=== PATIENT | male | born 1985 | race Caucasian/White ===

== ENCOUNTER 2025-02-15 22:03 | Emergency (ER) | payer BC, MEDICAID, SELFPAY ==
--- NOTE | 2025-02-15 22:09 | ECG_ITS ---
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 Measurements Intervals [place] Rate: 113 P: 12 NC: 162 QRS: -13 QRSD: 74 T: 61 QT: 305 QTc: 418 Interpretive Statements SINUS TACHYCARDIA TECHNICALLY POOR TRACING ABNORMAL RHYTHM ECG No previous ECG available for comparison Electronically Signed On 02-16-2025 20:14:14 BAND SINGER by Jaxon Vences M.D. [id number] [id number]
--- NOTE | 2025-02-15 22:09 | XRR_ITS ---
PROCEDURE INFORMATION: Exam: XR Chest Exam date and time: 02/15/2025 10:13 PM Age: 39 years old Clinical indication: Pain; Chest pressure; Additional info: Chest pain TECHNIQUE: Imaging protocol: Radiologic exam of the chest. Views: 1 view. COMPARISON: No relevant prior studies available. FINDINGS: Lungs: Unremarkable. No consolidation. Pleural spaces: Unremarkable. No pleural effusion. No pneumothorax. Heart/Mediastinum: Unremarkable. No cardiomegaly. Bones/joints: Unremarkable. Gastrointestinal tract: Distended stomach with ingested material. XR/XR chest 1V portable [id number] IMPRESSION: As above.
[2025-02-15 22:14] VITALS: BP 144/102; PULSE 106; RESP 18; TEMP 36.7; O2SAT 98; BMI 29.2
--- NOTE | 2025-02-15 22:23 | W.ED.CHESTPA ---
HPI - Chest Pain General: Chief Complaint: Chest Pain Stated Complaint: Chest Pain Time Seen by Provider: 02/15/25 22:13 History of Present Illness: 39yo M w/cc of chest pain. Patient does not have any significant medical history and does not take any medications although recently he has stopped taking medications for weight loss called phentermine. Patient states that today, he was standing while his son was changing his tire. He states that he bent over and started experiencing pressure-like sensation in his left chest. He states this persisted for a little while but it was not exertional, did not radiate, he denies pain with deep breathing. Patient has not had a fever, denies cough, hemoptysis, shortness of breath, syncope, lower extremity swelling. No abdominal pain, vomiting or diaphoresis. Patient has felt a little nauseated but that had passed. Patient states the chest pain has now resolved. Patient states he is a former smoker but no longer smokes and does not use marijuana. Related Data Allergies Allergy/AdvReac Type Severity Reaction Status Date / Time No Known Allergies Allergy Verified 02/15/25 22:18 Physical Exam Narrative: EXAM NARRATIVE: Vital signs were reviewed. Patient is alert and oriented. Patient is breathing comfortably, no increased WOB or accessory muscle use. SpO2 is above 95% on RA. Patient has clear lungs b/l, no rhonchi, wheezing or crackles. No hypotension. +Mild tachycardia. Abdomen is soft, nondistended and nontender. Patient is moving all extremities, no deformity or gross injury. No lower extremity edema or asymmetry. Course Vital Signs: Vital signs: Vital Signs Temperature 98.0 F 02/15/25 22:14 Pulse Rate 86 02/16/25 00:50 Respiratory Rate 16 02/16/25 00:50 Blood Pressure 110/75 02/16/25 00:50 Pulse Oximetry 97 02/16/25 00:50 Oxygen Delivery Me thod Room Air 02/15/25 22:14 MDM - Chest Pain Medical Decision Making 39-year-old male without significant medical history presents with a chief complaint of chest pain. Differential diagnosis includes, but is not limited to, ACS, myocarditis, pericarditis, pneumonia, viral upper respiratory infection, PE, GERD, other. On initial exam, patient is hemodynamically stable nontoxic appearing. EKG was personally reviewed and interpreted and shows no STEMI. He was evaluated with CBC, CMP, troponin, D-dimer, EKG and chest x-ray. EKG does not show STEMI though baseline is quite poor on the first EKG. Patient has a normal white blood cell count and is not anemic. He does not have any actionable electrolyte abnormalities. He has a normal baseline troponin with a negative delta, D-dimer is within normal limits. Chest x-ray does not show acute pathology. He has a heart score of 0-1. Patient's presentation is consistent with noncardiac chest pain in a case at this time he is chest pain-free. He is comfortable going home and following up with his regular doctor. Patient was counseled on supportive care at home, given return precautions and discharged in stable condition with recommendation for outpatient follow-up with primary care nurse or doctor. Lab Data 02/15/25 22:40 02/15/25 22:40 Radiology Impressions Chest X-Ray 02/15/25 22:09 IMPRESSION: As above. Laboratory Results WBC 7.47 10^3/uL (3.29-11.43) 02/15/25 22:40 RBC 5.36 10^6/uL (3.85-5.65) 02/15/25 22:40 Hgb 16.60 g/dL (11.27-16.99) 02/15/25 22:40 Hct 47.1 % (37-53) 02/15/25 22:40 MCV 87.9 fl (82-101) 02/15/25 22:40 MCH 31.0 pg (27-33) 02/15/25 22:40 MCHC 35.2 g/dL (30-55) 02/15/25 22:40 RDW 12.3 % (12.1-15.1) 02/15/25 22:40 Plt Count 315 10^3/cmm (157-399) 02/15/25 22:40 MPV 9.1 fL (7.4-10.4) 02/15/25 22:40 Neut % (Auto) 53.9 % 02/15/25 22:40 Lymph % (Auto) 33.6 % 02/15/25 22:40 [place] % (Auto) 9.8 % 02/15/25 22:40 Eos % (Auto) 1.5 % 02/15/25 22:40 Baso % (Auto) 0.9 % 02/15/25 22:40 Neut # (Auto) 4.03 10^3/uL (1.8-7.7) 02/15/25 22:40 Lymph # (Auto) 2.5 10^3/uL (0.8-4.8) 02/15/25 22:40 [place] # (Auto) 0.7 10^3/uL (0.2-0.9) 02/15/25 22:40 Eos # (Auto) 0.1 10^3/uL (0.0-0.8) 02/15/25 22:40 Baso # (Auto) 0.1 10^3/uL (0.0-0.1) 02/15/25 22:40 Nucleated RBC % (auto) 0 % 02/15/25 22:40 Nucleated RBCs # 0.0 /100WBC 02/15/25 22:40 D-Dimer <= 0.27 ug/mLFEU (0-0.59) 02/15/25 22:40 Sodium 138 mmol/L (136-145) 02/15/25 22:40 Potassium 3.9 mmol/L (3.5-5.1) 02/15/25 22:40 Chloride 101 mmol/L (98-107) 02/15/25 22:40 Carbon Dioxide 22 mmol/L (22-29) 02/15/25 22:40 Anion Gap 18.9 (5-19) 02/15/25 22:40 BUN 17 mg/dL (6-20) 02/15/25 22:40 Creatinine 1.0 mg/dL (0.7-1.2) 02/15/25 22:40 GFR Calculation 83.2 mL/min (90-130) L 02/15/25 22:40 Glucose 147 mg/dL (65-115) H 02/15/25 22:40 Calculated Osmolality 290 mOsm/kg (285-295) 02/15/25 22:40 Calcium 10.0 mg/dL (8.5-10.5) 02/15/25 22:40 Total Bilirubin 0.4 mg/dL (0.15-1.2) 02/15/25 22:40 AST 22 U/L (0-40) 02/15/25 22:40 ALT 33 U/L (0-41) 02/15/25 22:40 Alkaline Phosphatase 98 U/L (40-130) 02/15/25 22:40 Troponin T Baseline < 6 ng/L (0-15) 02/15/25 22:40 Troponin T 120 Minute < 6.0 ng/L (0-15) 02/16/25 00:48 Delta Troponin T 0 ABS# (0-10) 02/16/25 00:48 Total Protein 8.2 g/dL (6.6-8.7) 02/15/25 22:40 Albumin 5.1 g/dL (3.5-5.2) 02/15/25 22:40 Globulin 3.1 g/dL (1.3-4.6) 02/15/25 22:40 All radiology interpretation(s) finalized by discharge EKG Data EKG 1: Interpretation: Sinus rhythm with a heart rate of 113, normal axis, normal intervals, no STEMI, very poor baseline. EKG 2: Interpretation: Sinus rhythm with sinus arrhythmia, heart rate of 82, normal axis, normal intervals, no STEMI. Discharge Plan Discharge Patient Disposition: Home Clinical Impression: Non-cardiac chest pain Condition: Stable Discharge Orders: Discharge ED (Routine); Ordered 02/16/25 Ordered By: Rhonda Clark Patient Instructions: Chest Pain - Noncardiac, Opioid Safety, Pain Management, Patient Portal & [place] Instructions Activity Restrictions/Additional Instructions: Please continue to monitor your condition closely at home. If your condition worsens or additional concerns arise, please return promptly to the emergency department for reassessment. Follow up with your primary care doctor in one week. 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
[2025-02-15 22:51] VITALS: PULSE 107; RESP 16
[2025-02-15 22:52] LABS: Hematocrit 47.1 % (37-53); Hemoglobin 16.60 g/dL (11.27-16.99); Mean Corpuscular HGB Conc 35.2 g/dL (30-55); Mean Corpuscular Hemoglobin 31.0 pg (27-33); Mean Corpuscular Volume 87.9 fl (82-101); Nucleated Red Blood Cells % 0 %; Platelet Count 315 10^3/cmm (157-399); Red Blood Count 5.36 10^6/uL (3.85-5.65); White Blood Count 7.47 10^3/uL (3.29-11.43)
[2025-02-15 23:10] LABS: Troponin(5th) Baseline < 6 ng/L (0-15)
[2025-02-15 23:11] LABS: Alanine Aminotransferase 33 U/L (0-41); Albumin Level 5.1 g/dL (3.5-5.2); Alkaline Phosphatase 98 U/L (40-130); Anion Gap 18.9 (5-19); Aspartate Amino Transferase 22 U/L (0-40); Blood Urea Nitrogen 17 mg/dL (6-20); Calcium 10.0 mg/dL (8.5-10.5); Carbon Dioxide 22 mmol/L (22-29); Chloride 101 mmol/L (98-107); Creatinine Clr Calc Pharmacy 116.8256; Globulin 3.1 g/dL (1.3-4.6); Glucose 147 mg/dL (65-115); Osmolality Calculated 290 mOsm/kg (285-295); Potassium 3.9 mmol/L (3.5-5.1); Sodium 138 mmol/L (136-145); Total Protein 8.2 g/dL (6.6-8.7)
--- NOTE | 2025-02-16 00:44 | ECG_ITS ---
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
[2025-02-16 00:50] VITALS: BP 110/75; PULSE 86; RESP 16; O2SAT 97
[2025-02-16 01:09] LABS: Troponin 5 2HR < 6.0 ng/L (0-15); Troponin 5 2HR Delta 0 ABS# (0-10)
== END 2025-02-16 00:55 | disposition home or self-care (01) ==
PROVIDERS: Physician Assistant; Emergency Provider Emergency Medicine
DX: R07.89 Other chest pain (principal)
CPT/HCPCS: 36415; 71045; 80053; 84484; 85025; 85378; 93005; 99285